=== PATIENT | female | born 1965 | race Caucasian/White ===

== ENCOUNTER → 2019-03-24 | Outpatient (CLI) | payer BC ==
--- NOTE | 2019-03-25 10:17 | MM ---
Reason for exam: screening (asymptomatic). Last mammogram was performed 5 years and 10 months ago. History: Benign US RT VAD breast biopsy of the right breast, November 22, 2012. Benign US RT VAD breast biopsy of the right breast, May 11, 2012. U/S LT Cancelled Aspiration of both breasts, May 11, 2012. Physical Findings: A clinical breast exam by your physician is recommended on an annual basis and results should be correlated with mammographic findings. MG Screening Mammo w CAD Bilateral CC, MLO, and XCCL view(s) were taken. Prior study comparison: June 02, 2013, CAD bilateral diagnostic mammogram. May 11, 2012, right breast diagnostic digital virgen. The breast tissue is heterogeneously dense. This may lower the sensitivity of mammography. There is chronic nodularity in the right breast. Stable bilateral global asymmetries. New grouped calcifications associated with the left upper outer quadrant global asymmetry. ASSESSMENT: Incomplete: need additional imaging evaluation, BI-RAD 0 RECOMMENDATION: Special view mammogram of the left breast. If lesion persists on supplemental views, image directed ultrasound is recommended. [facility] will attempt to contact patient to return for supplemental views and ultrasound if indicated.
== END | disposition home or self-care (01) ==
LOC: RADMAMWWP 07:23
PROVIDERS: ATTEND Family Medicine
DX: Z12.31 Encounter for screening mammogram for malignant neoplasm of breast (principal)
CPT/HCPCS: 77067

== ENCOUNTER → 2019-04-01 | Outpatient (CLI) | payer BC, OTHER ==
--- NOTE | 2019-04-04 08:41 | MM ---
Reason for exam: additional evaluation requested from abnormal screening. Last mammogram was performed less than 1 month ago. History: Benign US RT VAD breast biopsy of the right breast, November 22, 2012. Benign US RT VAD breast biopsy of the right breast, May 11, 2012. U/S LT Cancelled Aspiration of both breasts, May 11, 2012. Physical Findings: Nurse did not find any significant physical abnormalities on exam. MG Work Up Mamm w CAD LT CC with magnification, MLO with magnification, and ML view(s) were taken of the left breast. Prior study comparison: March 24, 2019, bilateral MG screening mammo w CAD. June 02, 2013, CAD bilateral diagnostic mammogram. Finding: There are new indeterminate calcifications in the upper outer quadrant of the left breast. These results were verbally communicated with the patient and result sheet given to the patient on 04/01/19. ASSESSMENT: Suspicious, BI-RAD 4 RECOMMENDATION: Stereotactic core biopsy of the left breast. Called Dr. Kay's office with mammographic findings and has scheduled an appointment for the patient for 05/12/19 at 11:[address] Diaz. Biopsy scheduled for 04/18/19 at 10:20. PRELIMINARY REPORT CALLED AND FAXED TO DR. DIAZ ON 04/04/19.
== END | disposition home or self-care (01) ==
LOC: RADMAMWWP 13:20
PROVIDERS: ATTEND Family Medicine
DX: R92.8 Other abnormal and inconclusive findings on diagnostic imaging of breast (principal); N64.59 Other signs and symptoms in breast
CPT/HCPCS: 77065

== ENCOUNTER → 2019-04-18 | Day surgery (SDC) | payer OTHER ==
[2019-04-18 09:47] VITALS: RESP 16
[2019-04-18 11:14] VITALS: BP 132/86; PULSE 103; TEMP 97.8
--- NOTE | 2019-04-22 09:07 | MM ---
Stereotactic Mammotome core biopsy left breast. HISTORY: left breast mass with microcalcifications The mass with microcalcifications in question within the left breast were targeted by the undersigned. Procedure was performed by the undersigned. Informed consent was obtained and all of the patients questions were answered. The standard sterile technique was utilized and appropriate local anesthesia was obtained with 1% lidocaine. Mammotome probe was advanced and multiple core samples were obtained and sent to pathology for interpretation. Microclip marker was deployed at the site of biopsy. Post procedural mammogram demonstrates appropriate deployment of radiopaque clip marker. The patient tolerated the procedure well and left the department in stable condition. Pathology results are pending. IMPRESSION: Successful stereotactic core biopsy left breast with pathology results pending. Pathology Results: Benign LEFT BREAST, STEREOTACTIC CORE BIOPSY: Fibrocystic changes including cysts, fibrosis, adenosis and apocrine metaplasia. Intraluminal calcium oxalate crystals are identified. Recommendation Follow up mammogram of the left breast in 6 months. DAWIT
== END ==
LOC: RADMAMWWP 09:13
PROVIDERS: ATTEND Surgery
DX: N60.02 Solitary cyst of left breast (principal)
CPT/HCPCS: 19081; 88305; A4648; J2001

== ENCOUNTER → 2019-10-18 | Outpatient (CLI) | payer OTHER ==
--- NOTE | 2019-10-18 09:55 | MM ---
Reason for exam: follow-up at short interval from prior study. Last mammogram was performed 7 months ago. History: Patient is nulliparous. Benign MG stereo VAD BX LT of the left breast, April 18, 2019. Benign US RT VAD breast biopsy of the right breast, November 22, 2012. Benign US RT VAD breast biopsy of the right breast, May 11, 2012. U/S LT Cancelled Aspiration of both breasts, May 11, 2012. Taking hormonal contraceptives for 6 months. Physical Findings: Nurse did not find any significant physical abnormalities on exam. MG Diagnostic Mammo LT w CAD CC, MLO, and XCCL view(s) were taken of the left breast. Prior study comparison: April 01, 2019, left breast MG work up mamm w CAD LT. March 24, 2019, bilateral MG screening mammo w CAD. The breast tissue is heterogeneously dense. This may lower the sensitivity of mammography. Previous mammotome biopsy in the left breast. Global asymmetry upper outer quadrant is larger from 2014. Ultrasound recommended. These results were verbally communicated with the patient and result sheet given to the patient on 10/18/19. ASSESSMENT: Incomplete: need additional imaging evaluation, BI-RAD 0 RECOMMENDATION: Ultrasound of the left breast. (upper outer quadrant)
--- NOTE | 2019-10-18 09:58 | USB ---
Reason for exam: additional evaluation requested from abnormal screening. History: Patient is nulliparous. Benign MG stereo VAD BX LT of the left breast, April 18, 2019. Benign US RT VAD breast biopsy of the right breast, November 22, 2012. Benign US RT VAD breast biopsy of the right breast, May 11, 2012. U/S LT Cancelled Aspiration of both breasts, May 11, 2012. Taking hormonal contraceptives for 6 months. US Breast Limited LT Left limited breast ultrasound including focal area of concern, retroareolar and axilla demonstrates a 3.8 x 1.3 x 3.6cm oval, solid, circumscribed lesion at 2 o'clock, larger on mammogram, biopsy recommended, a debris filled duct at 2 o'clock and a 0.8cm oval lymph node at the axilla tail. Scanned 12-3 o'clock. These results were verbally communicated with the patient and result sheet given to the patient on 10/18/19. ASSESSMENT: Suspicious, BI-RAD 4 RECOMMENDATION: Ultrasound core biopsy of the left breast. Called office with mammographic findings and has scheduled an appointment for the patient for 11/10/19 at 8:[address] Diaz. Biopsy scheduled for 10/31/19 at 10:30. PRELIMINARY REPORT CALLED AND FAXED TO DR. DIAZ ON 10/18/19.
== END | disposition home or self-care (01) ==
LOC: RADMAMWWP 07:27
PROVIDERS: ATTEND Surgery
DX: R92.8 Other abnormal and inconclusive findings on diagnostic imaging of breast (principal)
CPT/HCPCS: 77065

== ENCOUNTER → 2019-10-31 | Day surgery (SDC) | payer OTHER ==
[2019-10-31 09:47] VITALS: BP 151/98; PULSE 83; RESP 16; TEMP 98.2
--- NOTE | 2019-10-31 13:27 | USB ---
EXAMINATION TYPE: US biopsy breast VAD LT, MG diagnostic mammo LT wo CAD DATE OF EXAM: 10/31/2019 CLINICAL HISTORY: R92.8 Abnormal Mammogram. Abnormal ultrasound. History of benign left breast stereo tactic biopsy April 18, 2019. TECHNIQUE: Ultrasound guided core biopsy of left breast with clip placement and follow-up diagnostic two-view mammogram. COMPARISON: Left breast ultrasound and mammogram October 18, 2019 and older mammograms. FINDINGS: The procedure of ultrasound guided core biopsy was explained to the patient. Benefits, alt ernatives, and risks were discussed. An informed consent was then obtained. The patient was placed in supine positioning for imaging and for the procedure. Preprocedure ultraso und redemonstrates oval wider greater than cough 4.1 x 1.5 cm heterogeneous hypoechoic lesion with pu nctate foci or calcifications layering dependently in thin-walled cysts perhaps milk of calcium. The overlying skin was prepped and draped in usual sterile fashion. Once used as anesthetic into the skin and subcutaneous tissue. Lidocaine with epinephrine is used as anesthetic in the deeper tissue up to area of concern in the left breast. Under ultrasound guidance, a 12-gauge vacuum assisted biopsy gun device was used to obtain 2 core tobin ples. Following this, a biopsy clip was left in periphery of lesion. Lesion was difficult to penetr ate. The patient tolerated the procedure well without any immediate complication. The patient was kept in the radiology department for short stay after the procedure and then discharged home in stable condi tion. Postprocedure mammogram shows successful deployment of clip in the lesion. IMPRESSION: Successful, uncomplicated ultrasound guided core biopsy of area of concern in the left br east, full pathology results to follow. Intermediate index of suspicion noted at time of procedure.
== END ==
LOC: RADUSWWP 09:28
PROVIDERS: ATTEND Surgery
DX: N60.32 Fibrosclerosis of left breast (principal); N60.82 Other benign mammary dysplasias of left breast; N64.89 Other specified disorders of breast
CPT/HCPCS: 88305; 77065; 19083; A4648; J2001

== ENCOUNTER → 2020-05-04 | Outpatient (CLI) | payer OTHER ==
--- NOTE | 2020-05-04 11:40 | MM ---
Reason for exam: follow-up at short interval from prior study. Last mammogram was performed 6 months ago. History: Patient is nulliparous. Family history of breast cancer in mother at age 78. Benign US biopsy breast VAD LT of the left breast, October 31, 2019. Benign MG stereo VAD BX LT of the left breast, April 18, 2019. Benign US RT VAD breast biopsy of the right breast, November 22, 2012. Benign US RT VAD breast biopsy of the right breast, May 11, 2012. U/S LT Cancelled Aspiration of both breasts, May 11, 2012. Took hormonal contraceptives for 6 months. Physical Findings: Nurse did not find any significant physical abnormalities on exam. MG 3D Diag Mammo W/Cad BRAYDON Bilateral CC and MLO view(s) were taken. CV view(s) were taken of the left breast. Prior study comparison: October 31, 2019, left breast MG diagnostic mammo LT wo CAD. October 18, 2019, left breast MG diagnostic mammo LT w CAD. The breast tissue is heterogeneously dense. This may lower the sensitivity of mammography. Stable calcifications. There is chronic nodularity bilaterally. These results were verbally communicated with the patient and result sheet given to the patient on 05/04/20. ASSESSMENT: Incomplete: need additional imaging evaluation, BI-RAD 0 RECOMMENDATION: Ultrasound of the left breast. Manage patient on a clinical basis.
--- NOTE | 2020-05-04 11:42 | USB ---
Reason for exam: additional evaluation requested from abnormal screening. History: Patient is nulliparous. Family history of breast cancer in mother at age 78. Benign US biopsy breast VAD LT of the left breast, October 31, 2019. Benign MG stereo VAD BX LT of the left breast, April 18, 2019. Benign US RT VAD breast biopsy of the right breast, November 22, 2012. Benign US RT VAD breast biopsy of the right breast, May 11, 2012. U/S LT Cancelled Aspiration of both breasts, May 11, 2012. Took hormonal contraceptives for 6 months. US Breast LT Left complete breast ultrasound includes all four quadrants, the retroareolar region and axilla. Finding demonstrates a 3.5 x 1.4 x 3.9cm mixed, hypoechoic lesion at 2 o'clock, previously biopsied. These results were verbally communicated with the patient and result sheet given to the patient on 05/04/20. ASSESSMENT: Benign, BI-RAD 2 RECOMMENDATION: Routine screening mammogram of both breasts in 1 year.
== END ==
LOC: RADMAMWWP 07:33
PROVIDERS: ATTEND Surgery
DX: R92.8 Other abnormal and inconclusive findings on diagnostic imaging of breast (principal)
CPT/HCPCS: 77062; 77066

== ENCOUNTER → 2021-05-07 | Outpatient (CLI) | payer OTHER ==
[2021-05-07 08:36] VITALS: BP 155/81; PULSE 85; RESP 18; TEMP 98.1
--- NOTE | 2021-05-07 09:25 | P.HPOB ---
History of Present Illness H&P Date: 05/07/21 Chief Complaint: The patient is here for her routine gynecologic exam and ma mmogram. This is a 55-year-old G0 with an LMP of 04/16/2021. The patient is here to establish with this office. Her is status post vasectomy. It has been about 2 years since her last pelvic exam. Menstrual periods are generally fairly regular every 4-5 weeks. She did skip a menstrual period in 2020 and she believes it was October 2020. She has occasional hot flashes at night which are not very severe. She is otherwise without gynecologic complaints. Review of Systems The patient has gained 10 pounds over the last year. She denies respiratory, cardiac, or G.I. problems. 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 History of Any Multi-Drug Resistant Organisms: None Reported Past Surgical History: Hernia Repair, Tonsillectomy Additional Past Surgical History / Comment(s): 1984 Left knee arthoscopic surgery, inguinal hernia repair as a toddler, left breast biopsy 4-5 yrs ago, right breast biopsy 4 years ago, left breast biopsy mar 2019 all benign. Past Anesthesia/Blood Transfusion Reactions: No Reported Reaction Past Psychological History: No Psychological Hx Reported Smoking Status: Never smoker Past Alcohol Use History: Occasional (2-3 per week) Past Drug Use History: None Reported Additional History: She has been since 1994. She works at [employer] and has been working from home. - Past Family History Mother Family Medical History: Cancer Additional Family Medical History / Comment(s): Breast cancer. Maternal grandfather had colon polyps and coronary artery disease. Father Family Medical History: Hyperlipidemia Medications and Allergies Home Medications Medication Instructions Recorded Confirmed Type Multivitamins, Thera [Multivitamin 1 tab PO DAILY 04/06/19 05/07/21 History (formulary)] Cholecalciferol [Vitamin D3 (25 25 mcg PO DAILY 05/07/21 05/07/21 History Mcg = 1000 Iu)] Allergies Allergy/AdvReac Type Severity Reaction Status Date / Time No Known Allergies Allergy Verified 05/07/21 08:30 Exam Vital Signs Temp Pulse Resp BP Pulse Ox 05/07/21 08:32 98.1 F 85 18 155/81 96 Intake and Output 05/06/21 05/07/21 05/07/21 22:59 06:59 14:59 Other: Weight 125.645 kg Height 5 feet 3-1/2 inches, weight 277 pounds, BMI 48.3. This is a well-developed well-nourished heavyset white female who is alert and oriented times 3 in no acute distress. HEENT: Within normal limits. NECK: Supple without mass or thyromegaly. CHEST AND LUNGS: Clear to auscultation. HEART: Regular rate and rhythm. BREASTS: Are without mass or discharge. AXILLARY EXAM: Negative for adenopathy. BACK: Negative for CVA tenderness. ABDOMEN: Soft, nontender, without palpable masses. PELVIC EXAM: Normal external genitalia. Cervix and vagina appear normal. The cervix is nulliparous and slightly angled posteriorly. There is no unusual discharge. There is no evidence of prolapse. The uterus is midposition, nongravid size and nontender. There are no palpable adnexal masses or tenderness. RECTAL EXAM: Rectovaginal exam is negative for mass or tenderness and is negative for occult blood. EXTREMITIES: Nontender. IMPRESSION: 1. 55-year-old perimenopausal female with slight menstrual irregularity and mild vasomotor symptoms with normal gynecologic exam. 2. Elevated blood pressure. PLAN: 1. Pap smear cotest was performed. 2. Self breast awareness was discussed with the patient. We have also discussed symptoms associated with inflammatory breast cancer. 3. Screening mammogram will be done today. 4. Osteoporosis prevention was discussed. I have stressed the importance of adequate calcium, vitamin D and regular exercise. Recommended amounts of calcium and vitamin D were also discussed. 5. We have discussed her blood pressure elevation. I have recommended that she check her own blood pressures on a regular basis at home and follow-up with her PCP for blood pressure elevations. 6. She has completed her Covid vaccinations with booster. 7. She was advised to return in one year for her annual well woman exam.
--- NOTE | 2021-05-08 08:59 | MM ---
Reason for exam: screening (asymptomatic). Last mammogram was performed 1 year ago. History: Patient is nulliparous. Family history of breast cancer in mother at age 78. Benign US biopsy breast VAD LT of the left breast, October 31, 2019. Benign MG stereo VAD BX LT of the left breast, April 18, 2019. Benign US RT VAD breast biopsy of the right breast, November 22, 2012. Benign US RT VAD breast biopsy of the right breast, May 11, 2012. U/S LT Cancelled Aspiration of both breasts, May 11, 2012. Took hormonal contraceptives for 6 months. Physical Findings: A clinical breast exam by your physician is recommended on an annual basis and results should be correlated with mammographic findings. MG 3D Screening Mammo W/Cad Bilateral CC, MLO, and XCCL view(s) were taken. Prior study comparison: May 04, 2020, bilateral MG 3d diag mammo w/cad BRAYDON. October 31, 2019, left breast MG diagnostic mammo LT wo CAD. The breast tissue is heterogeneously dense. This may lower the sensitivity of mammography. Stable benign calcifications. There is no discrete abnormality. No significant changes when compared with prior studies. ASSESSMENT: Benign, BI-RAD 2 RECOMMENDATION: Routine screening mammogram of both breasts in 1 year.
== END ==
LOC: WWCWWP 08:19
PROVIDERS: ATTEND Obstetrics & Gynecology
DX: Z12.31 Encounter for screening mammogram for malignant neoplasm of breast (principal); N64.59 Other signs and symptoms in breast; N92.6 Irregular menstruation, unspecified; N95.1 Menopausal and female climacteric states; R03.0 Elevated blood-pressure reading, without diagnosis of hypertension; Z80.3 Family history of malignant neoplasm of breast
CPT/HCPCS: 77063; 77067

== ENCOUNTER → 2022-07-15 | Outpatient (CLI) | payer OTHER ==
[2022-07-15 11:47] VITALS: BP 142/85; PULSE 72; RESP 17; TEMP 98.6
--- NOTE | 2022-07-15 12:26 | P.HPOB ---
History of Present Illness H&P Date: 07/15/22 Chief Complaint: The patient is here for her routine gynecologic exam and ma mmogram. This is a 56-year-old G0 with an LMP of 02/28/2022. The patient's is status post vasectomy. Her menstrual periods have been somewhat irregular during the past year. The menstrual periods were every 1-2 months up until February 2022, and she has not had any menstrual periods since then. She denies any significant hot flashes now, but 1-2 years ago she did have some mild hot fl ashes. Review of Systems The patient has gained 34 pounds over the last year. She attributes this to any problems which has not allowed her to be active. She denies respiratory, cardiac, or G.I. problems. Past Medical History Past Medical History: Hypertension Additional Past Medical History / Comment(s): Left knee problems. 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 History of Any Multi-Drug Resistant Organisms: None Reported Past Surgical History: Hernia Repair, Tonsillectomy Additional Past Surgical History / Comment(s): 1984 Left knee arthoscopic surgery, inguinal hernia repair as a toddler, left breast biopsy 4-5 yrs ago, right breast biopsy 4 years ago, left breast biopsy mar 2019 all benign. Colonoscopy 2019(next after 10yr). Past Anesthesia/Blood Transfusion Reactions: No Reported Reaction Past Psychological History: No Psychological Hx Reported Smoking Status: Never smoker Past Alcohol Use History: Occasional (3 per week) Past Drug Use History: None Reported Additional History: She has been since 1994. She works at [employer] and works both at home and in person. - Past Family History Mother Family Medical History: Cancer Additional Family Medical History / Comment(s): Breast cancer. Maternal grandfather had colon polyps and coronary artery disease. Father Family Medical History: Hyperlipidemia Medications and Allergies Home Medications Medication Instructions Recorded Confirmed Type Multivitamins, Thera [Multivitamin 1 tab PO DAILY 04/06/19 07/15/22 History (formulary)] Bisoprolol-Hctz 5-6.25 mg [Ziac 1 tablet PO DAILY 07/15/22 07/15/22 History 5-6.25 MG] Ibuprofen [Advil] 200 mg PO DIRECTED PRN 07/15/22 07/15/22 History Omeprazole [PriLOSEC] 10 mg PO DIRECTED PRN 07/15/22 07/15/22 History Allergies Allergy/AdvReac Type Severity Reaction Status Date / Time No Known Allergies Allergy Verified 07/15/22 11:40 Exam Vital Signs Temp Pulse Resp BP Pulse Ox 07/15/22 11:45 98.6 F 72 17 142/85 97 Intake and Output 07/14/22 07/15/22 07/15/22 22:59 06:59 14:59 Other: Weight 141.067 kg Height 5 feet 4 inches, weight 311 pounds, BMI 53.4. This is a well-developed well-nourished heavyset white female who is alert and oriented times 3 in no acute distress. HEENT: Within normal limits. NECK: Supple without mass or thyromegaly. CHEST AND LUNGS: Clear to auscultation. HEART: Regular rate and rhythm. BREASTS: Are without mass or discharge. There is bilateral nipple inversion which the patient states she has had most of her life. AXILLARY EXAM: Negative for adenopathy. BACK: Negative for CVA tenderness. ABDOMEN: Soft, obese, nontender, without palpable masses. PELVIC EXAM: Normal external genitalia. Cervix and vagina appear normal. There is no unusual discharge. There is no evidence of prolapse. The uterus is midposition, nongravid size and nontender. There are no palpable adnexal masses or tenderness. RECTAL EXAM: Rectovaginal exam is negative for mass or tenderness and is negative for occult blood. EXTREMITIES: Nontender. Blood tests done through her PCP on 05/15/2022 include FSH of 40, normal prolactin, normal TSH, and estradiol of 16. IMPRESSION: 1. 56-year-old perimenopausal female whose is status post vasectomy, with normal gynecologic exam. PLAN: 1. Pap smear was deferred since she had a negative Pap smear cotest on 05/07/2021. 2. Self breast awareness was discussed with the patient. We have also discussed symptoms associated with inflammatory breast cancer. 3. Screening mammogram was done today. 4. Osteoporosis prevention was discussed. I have stressed the importance of adequate calcium, vitamin D and regular exercise. Recommended amounts of calcium and vitamin D were also discussed. 5. The patient will continue to keep a menstrual calendar and call if menstrual problems. 6. She was advised to return in one year for her annual well woman exam and as needed.
--- NOTE | 2022-07-16 16:21 | MM ---
Reason for Exam: Screening (asymptomatic). Last mammogram was performed 1 year(s) and 2 month(s) ago. Patient History: Menarche at age 16. Patient has no children. Perimenopausal. Hormonal Contraceptives for 6 months. 10/31/2019, Benign Core Biopsy on the left side. 04/18/2019, Benign Core Biopsy on the left side. 11/22/2012, Benign Core Biopsy on the right side. 05/11/2012, Benign Core Biopsy on the right side. 05/11/2012, Bilateral U/S LT Cancelled Aspiration. Mother had breast cancer, age 78. Risk Values: Mindi 5 year model risk: 3.1%. NCI Lifetime model risk: 20.9%. Prior Study Comparison: 10/31/2019 Left Diagnostic Mammogram, [facility]. 05/04/2020 Bilateral Diagnostic Mammogram, [facility]. 05/07/2021 Bilateral Screening Mammogram, [facility]. Tissue Density: There are scattered fibroglandular densities. Findings: Analyzed By CAD. Pattern appears stable. Scattered focal asymmetries are present bilaterally. Some regional punctate calcifications are present. A core marker are within the left breast. No suspicious groups of microcalcifications, spiculated or lobular masses, architectural distortion or other secondary signs of malignancy are mammographically apparent. Overall Assessment: Benign, BI-RAD 2 Management: Screening Mammogram of both breasts in 1 year. A negative mammogram report should not preclude additional follow up of suspicious palpable abnormalities. Patient should continue monthly self breast exam. A clinical breast exam by your physician is recommended on an annual basis and results should be correlated with mammographic findings. Electronically signed and approved by: Santos Salmeron D.O. Radiologis
== END ==
LOC: WWCWWP 11:11
PROVIDERS: ATTEND Obstetrics & Gynecology
DX: Z12.31 Encounter for screening mammogram for malignant neoplasm of breast (principal); Z01.419 Encounter for gynecological examination (general) (routine) without abnormal findings; I10 Essential (primary) hypertension; Z68.43 Body mass index [BMI] 50.0-59.9, adult; Z79.1 Long term (current) use of non-steroidal anti-inflammatories (NSAID); Z80.3 Family history of malignant neoplasm of breast; Z82.49 Family history of ischemic heart disease and other diseases of the circulatory system; Z83.49 Family history of other endocrine, nutritional and metabolic diseases; Z83.71 Family history of colonic polyps; Z98.890 Other specified postprocedural states
CPT/HCPCS: 77063; 77067

== ENCOUNTER → 2022-08-14 | Outpatient (CLI) | payer OTHER ==
[2022-08-14 14:49] LABS: Basophils # (A) 0.03 X 10*3/uL (0.00-0.10); Basophils % (A) 0.3 %; Eosinophils # (A) 0.22 X 10*3/uL (0.04-0.35); Eosinophils % (A) 2.2 %; HCT 39.3 % (37.2-46.3); HGB 12.8 g/dL (12.0-15.0); Immature Grans, Automated 0.5 %; Lymphocytes # (A) 1.95 X 10*3/uL (0.90-5.00); Lymphocytes % (A) 19.3 %; MCH 31.1 pg (27.0-32.0); MCHC 32.6 g/dL (32.0-37.0); MCV 95.4 fL (80.0-97.0); Mean Platelet Volume 9.9 fL (9.5-12.2); Monocytes % (A) 6.9 %; NRBC Per 100 WBC 0 /100 WBCS (0.0-0.0); Neutrophils # (A) 7.16 X 10*3/uL (1.80-7.70); Neutrophils % (A) 70.8 %; Platelet Count 340 X 10*3/uL (140-440); RBC 4.12 X 10*6/uL (4.10-5.20); RDW 14.2 % (11.5-14.5); WBC 10.11 X 10*3/uL (4.50-10.00)
[2022-08-14 15:01] LABS: African American GFR (CKD) 87.3 (60.0-200.0); Albumin 4.2 g/dL (3.8-4.9); Albumin/Globulin Ratio 2.03 (1.60-3.17); Anion Gap 11.9 mmol/L (10.00-18.00); BUN/Creat Ratio 20.99 Ratio (12.00-20.00); Blood Urea Nitrogen 18.3 mg/dL (9.0-27.0); Calcium 9.3 mg/dL (8.7-10.3); Globulin 2.1 g/dL (1.6-3.3); Non-African American GFR(CKD) 75.3 (60.0-200.0); Potassium 4.4 mmol/L (3.5-5.5); Total Bilirubin 0.4 mg/dL (0.30-1.20); Total Protein 6.2 g/dL (6.2-8.2)
[2022-08-14 15:49] LABS: INR 0.88 (0.90-1.11)
== END | disposition home or self-care (01) ==
LOC: LABWHC1 07:48
PROVIDERS: ATTEND Orthopaedic Surgery Adult Reconstructive Orthopaedic Surgery
DX: Z01.812 Encounter for preprocedural laboratory examination (principal); M25.562 Pain in left knee; M17.12 Unilateral primary osteoarthritis, left knee
CPT/HCPCS: 36415; 80053; 85025; 85610; 87070